=== PATIENT | male | born 1990 | race Caucasian/White ===

== ENCOUNTER 2024-08-18 14:05 | Emergency (ER) | payer BC, MEDICAID ==
[~2024-08-18] VITALS: Ht 170.2 cm; Wt 72.6 kg
[2024-08-18] MEDS ORDERED: NAPR-1164 PO (16:31)
[2024-08-18 16:52] VITALS: BP 128/93; O2SAT 95
== END 2024-08-18 16:40 | disposition home or self-care (01) ==
LOC: ER 14:05
DX: S13.4XXA Sprain of ligaments of cervical spine, initial encounter (principal); M54.41 Lumbago with sciatica, right side; F17.200 Nicotine dependence, unspecified, uncomplicated; Z79.899 Other long term (current) drug therapy; V89.2XXA Person injured in unspecified motor-vehicle accident, traffic, initial encounter; Y93.89 Activity, other specified; Y92.89 Other specified places as the place of occurrence of the external cause; Y99.8 Other external cause status
CPT/HCPCS: 72131; A4606; A4663